=== PATIENT | male | born 1965 | race African-American/Black ===

== ENCOUNTER 2024-02-22 02:40 | Emergency (ER) | payer MEDICAID ==
[~2024-02-22] VITALS: Ht 185.4 cm; Wt 122.5 kg
[2024-02-22 02:48] VITALS: BP 137/82; PULSE 92; RESP 18; TEMP 98; O2SAT 99
[2024-02-22] MEDS ORDERED: ELIMC TP (03:25)
[2024-02-22 03:42] VITALS: BP 137/82; PULSE 92; RESP 18; TEMP 98; O2SAT 99
[2024-02-23] MEDS ORDERED: CEPH-588 PO (10:05)
== END 2024-02-22 03:41 | disposition home or self-care (01) ==
LOC: MED 02:40
DX: B88.8 Other specified infestations (principal); I10 Essential (primary) hypertension; Z79.899 Other long term (current) drug therapy
CPT/HCPCS: 99282

== ENCOUNTER 2024-02-23 09:26 | Emergency (ER) | payer MEDICAID ==
[~2024-02-23] VITALS: Ht 185.4 cm; Wt 127.5 kg
[~2024-02-23 09:26] MED LIST: ELIMC TP
[2024-02-23 09:44] VITALS: BP 152/95; PULSE 88; RESP 18; TEMP 97.5; O2SAT 97
[2024-02-23] MEDS ORDERED: CEPH-588 PO (10:05)
[2024-02-23 10:16] VITALS: BP 144/95; PULSE 78; RESP 16; TEMP 98.2; O2SAT 98
== END 2024-02-23 10:16 | disposition home or self-care (01) ==
LOC: MED 09:26
DX: L03.113 Cellulitis of right upper limb (principal); L03.312 Cellulitis of back [any part except buttock and flank]; I10 Essential (primary) hypertension; E11.9 Type 2 diabetes mellitus without complications; Z79.899 Other long term (current) drug therapy; Z86.73 Personal history of transient ischemic attack (TIA), and cerebral infarction without residual deficits
CPT/HCPCS: 99283

== ENCOUNTER 2024-02-25 20:53 | Emergency (ER) | payer MEDICAID ==
[~2024-02-25] VITALS: Ht 185.4 cm; Wt 125.6 kg
[~2024-02-25 20:53] MED LIST changes: +CEPH-588 PO
[2024-02-25 21:41] VITALS: BP 151/102; PULSE 88; RESP 18; TEMP 97.7; O2SAT 97
[2024-02-25] MEDS ORDERED: PERM5CRE3 TP (22:26)
== END 2024-02-25 22:30 | disposition home or self-care (01) ==
LOC: MED 20:53
DX: B88.8 Other specified infestations (principal); B88.0 Other acariasis; E11.9 Type 2 diabetes mellitus without complications; I10 Essential (primary) hypertension; Z86.73 Personal history of transient ischemic attack (TIA), and cerebral infarction without residual deficits; Z79.899 Other long term (current) drug therapy
CPT/HCPCS: 99282